=== PATIENT | male | born 1945 | race Caucasian/White ===

== ENCOUNTER 2021-06-23 07:54 | Day surgery (SDC) | payer MEDICARE, OTHER ==
[2021-06-23] MEDS ORDERED: DIPRIVAN 200 MG/20 ML IV ONE (10:26)
[2021-06-23] MEDS ORDERED: Lactated Ringers 1,000 ML IV ONE (10:32)
--- NOTE | 2021-06-23 11:53 | XRAY ---
Indication: Bilateral L4-S1 MBB. Intraoperative fluoroscopy provided for 18 seconds. Single digital spot image submitted for interpretation demonstrates posterior needle tips projecting over the expected left and right L4-S1 nerve roots. Correlate with intraoperative findings/report.
--- NOTE | 2021-06-23 12:14 | XRAY ---
18 seconds fluoroscopy time in surgery for bilateral L4-S1 MBB.
== END 2021-06-23 10:50 | disposition home or self-care (01) ==
LOC: SDC-PAIN 07:54 → EDSTATUS 17:55
PROVIDERS: ATTEND Psychiatry & Neurology Pain Medicine
DX: M47.816 Spondylosis without myelopathy or radiculopathy, lumbar region (principal); Z79.899 Other long term (current) drug therapy
CPT/HCPCS: 72020; 77002; J2704

== ENCOUNTER 2021-10-27 10:31 | Day surgery (SDC) | payer MEDICARE, OTHER ==
[2021-10-27] MEDS ORDERED: Marcaine Mpf 0.5% Vial 30 Ml IJ ONE (10:32)
[2021-10-27] MEDS ORDERED: DIPRIVAN 200 MG/20 ML IV ONE (11:36)
[2021-10-27] MEDS ORDERED: Lactated Ringers 1,000 ML IV ONE (12:17)
--- NOTE | 2021-10-27 14:32 | XRAY ---
Indication: Bilateral L4-S1 MBB. Intraoperative fluoroscopy provided for 13 seconds. Single digital spot image submitted for interpretation demonstrates posterior needle tips projecting over the expected left and right L4-S1 nerve roots. Correlate with intraoperative findings/report.
--- NOTE | 2021-10-27 16:44 | XRAY ---
13 seconds of fluoroscopy was used in surgery for a bilateral L4-S1 MBB.
== END 2021-10-27 11:59 | disposition home or self-care (01) ==
LOC: SDC-PAIN 10:31
PROVIDERS: ATTEND Psychiatry & Neurology Pain Medicine
DX: M47.816 Spondylosis without myelopathy or radiculopathy, lumbar region (principal); Z79.899 Other long term (current) drug therapy
CPT/HCPCS: 64493; 64494; 72020; 77002; J2704

== ENCOUNTER 2021-12-08 08:56 | Day surgery (SDC) | payer MEDICARE, OTHER ==
[2021-12-08] MEDS ORDERED: LIDOCAINE HCL 1% 50 MG/5 ML VL PF IJ ONE (08:57)
[2021-12-08] MEDS ORDERED: Depo-Medrol 40 MG/ML IM ONE (08:57)
[2021-12-08] MEDS ORDERED: Marcaine Mpf 0.5% Vial 30 Ml IJ ONE (08:57)
[2021-12-08] MEDS ORDERED: DIPRIVAN 200 MG/20 ML IV ONE (10:33)
--- NOTE | 2021-12-08 12:12 | XRAY ---
Indication: Right L4-S1 RFA. Intraoperative fluoroscopy provided for 52 seconds. 3 digital spot images submitted for interpretation demonstrate posterior needle tips projecting over the expected right L4-S1 nerve roots. Correlate with intraoperative findings/report.
[2021-12-08] MEDS ORDERED: Lactated Ringers 1,000 ML IV ONE (12:41)
--- NOTE | 2021-12-08 13:47 | XRAY ---
52 seconds fluoroscopy time in surgery for right L4-S1 RFA.
== END 2021-12-08 11:15 | disposition home or self-care (01) ==
LOC: SDC-PAIN 08:56
PROVIDERS: ATTEND Psychiatry & Neurology Pain Medicine
DX: M47.816 Spondylosis without myelopathy or radiculopathy, lumbar region (principal); Z79.899 Other long term (current) drug therapy
CPT/HCPCS: 64635; 64636; 72100; 77002; 99100; J1030; J2001; J2704

== ENCOUNTER 2021-12-15 13:02 | Day surgery (SDC) | payer MEDICARE, OTHER ==
[2021-12-15] MEDS ORDERED: Marcaine Mpf 0.5% Vial 30 Ml IJ ONE (13:03)
[2021-12-15] MEDS ORDERED: Depo-Medrol 40 MG/ML IM ONE (13:03)
[2021-12-15] MEDS ORDERED: XYLOCAINE-MPF 1% 5ML SDV IJ ONE (13:03)
[2021-12-15] MEDS ORDERED: Lactated Ringers 1,000 ML IV ONE ×2 (13:40→15:49)
[2021-12-15] MEDS ORDERED: DIPRIVAN 200 MG/20 ML IV ONE (14:16)
--- NOTE | 2021-12-15 19:16 | XRAY ---
Indication: Left L4-S1 RFA. Intraoperative fluoroscopy provided for 23 seconds. 5 digital spot image submitted for interpretation demonstrates posterior needle tips projecting over the expected left L4-S1 nerve roots. Correlate with intraoperative findings/report.
--- NOTE | 2021-12-15 19:35 | XRAY ---
23 seconds of fluoroscopy was used in surgery for a left L4-S1 RFA.
== END 2021-12-15 14:50 | disposition home or self-care (01) ==
LOC: SDC-PAIN 13:02
PROVIDERS: ATTEND Psychiatry & Neurology Pain Medicine
DX: M47.816 Spondylosis without myelopathy or radiculopathy, lumbar region (principal)
CPT/HCPCS: 64635; 64636; 72100; 77002; 99100; J1030; J2704